=== PATIENT | male | born 1935 | race Caucasian/White ===

== ENCOUNTER 2025-02-25 14:27 | Inpatient (IN) | payer MEDICARE, OTHER, SELFPAY ==
[2025-02-25] VITALS (9 sets, daily range): BP systolic 110–169; BP diastolic 69–110; BMI 25.0; BMI 24.0
--- NOTE | 2025-02-25 10:20 | ED.GENMED ---
History of Present Illness
<Lisy Alvarez MD, Resident - Last Filed: 02/25/25 16:10>
General
Chief Complaint: Weakness
Source: patient and spouse
Time Seen by Provider: 02/25/25 10:19
History of Present Illness
History of Present Illness:
Patient is an 89-year-old male who presents to the emergency department with weakness, softer and mumbled speech, and staggering balance that has been occurring for 1 week without improvement. He has a history of atrial fibrillation,
hyperlipidemia, chronic kidney disease stage III, and hearing loss and he takes Eliquis 2.5mg, finasteride, lovastatin, and metoprolol 25 mg. Patient was in his normal state of health until Friday last week when his noticed that he was
leaning off to the right side while he was folding his clothes. Patient's brought these concerns to the patient but he opted to not present to the emergency department at that time. The next day on Friday he was walking with his and his
right leg 'caved in' and he needed help from his in order to maintain balance and finish the journey. He often plays bridge with a friend who also has noticed that there is been a change in the patient's behavior. Patient was scheduled to
see ENT next Friday for the balance issues. The patient and his reached out to his compo conveyor operator for his through the [facility] and they recommended that the patient present to the emergency department for further evaluation based
on the history provided over the phone. Patient has not had any shortness of breath, chest tightness, or chest pain. he is not having any nausea, vomiting, or diarrhea. Urinary and bowel habits remain unchanged. His oral intake is normal. He
does not have any sensation of palpitations.
Past History
<Lisy Alvarez MD, Resident - Last Filed: 02/25/25 16:10>
Past History
ED Past Medical History: Arrthythmia ( Atrial fibrillation), CAD, HTN and Hypercholesterolemia
Social History
Tobacco: Non-smoker
Alcohol: Occasional
Drug: None
Personal: Partner
Living: with family
Employment: Not employed
Review of Systems
<Lisy Alvarez MD, Resident - Last Filed: 02/25/25 16:10>
Review of Systems
Constitutional: Reports no symptoms
EENT: Reports no symptoms
Respiratory: Reports no symptoms
Cardiac: Reports no symptoms
ABD/GI: Reports no symptoms
: Reports no symptoms
Musculoskeletal: Reports other ( knee 'caved in' during walk recently)
Skin: Reports no symptoms
Neurological: Reports other ( unsteady gait, mumbled/slurred speech)
Endocrine: Reports no symptoms
Hematologic/Lymphatic: Reports no symptoms
Psychiatric: Reports no symptoms
Phy Exam
<Lisy Alvarez MD, Resident - Last Filed: 02/25/25 16:10>
General Physical Exam
General Presentation: well appearing and no apparent distress
General age: appears stated age
General Skin: warm and dry
General Habitus: normal and elderly
General Mental: alert
General Hydration: appears well hydrated
Cardiovascular Exam
Cardiovascular Exam: no edema, no gallop, no JVD, no murmur, normal peripheral pulses and irregularly irregular
Pulmonary Exam
Pulmonary Exam: lungs clear, no respiratory distress, no rales, chest non tender, no crackles, no rhonchi, no stridor, no wheezing and no cough
Neurological Exam
Neurological Exam: alert, oriented x3, normal reflexs, no sensory deficits, dysarthric and slurred speech
Cerebellar
Cerebellar Function: normal finger to nose
Musculoskeletal Exam
Musculoskeletal Exam: full ROM
Skin Exam
Skin Exam: normal color and warm/dry
Psychiatric Exam
Psychiatric Exam: normal mood/affect
Scores
<Lisy Alvarez MD, Resident - Last Filed: 02/25/25 16:10>
NIH Stroke Score
Level of Consciousness: 0 - Alert
LOC Questions: 0-Answers both correctly
LOC Commands: 0-Performs both correctly
Best Horizontal Gaze: 0-Normal
Visual Carter: 0=Normal, no visual loss
Facial Palsy: 0=Normal, symmetrical
Motor - Right Arm: 0=No drift 10 seconds
Motor - Left Arm: 0=No drift 10 seconds
Motor - Right Le-No drift 5 seconds
Motor - Left Le-No drift 5 seconds
Limb Ataxia: 0-Absent
Sensation: 0-Normal
Best Language: 0-No aphasia
Dysarthria: 1-Mild slurring
Extinction and Inattention: 0-No abnormality
NIH Total Score:: 1
<Mauricio Mosqueda, DO - Last Filed: 02/25/25 11:46>
NIH Stroke Score
NIH Total Score:: 1
Course
<Lisy Alvarez MD, Resident - Last Filed: 02/25/25 16:10>
Orders/Labs/Results
Orders:
Orders
02/25/25 10:24
Electrocardiogram (*1) Urgent
Reason for Study: Fatigue / Weakness
EKG- Treatment ONCE
02/25/25 10:51
Complete Blood Count/With Diff Urgent
Comprehensive Metabolic Panel Urgent
Folate Urgent
Comment: ADD ON
Magnesium Urgent
Comment: ADD ON
Phosphorus Urgent
Comment: ADD ON
TSH Reflex To Free T4 Urgent
Vitamin B12 Urgent
Comment: ADD ON
02/25/25 10:54
CT Head W/o Iv Contrast Urgent
Comment:
Reason For Exam: R weakness dysarthria past week
02/25/25 11:00
Troponin I Urgent
02/25/25 11:44
Urinalysis Reflex To Culture Urgent
Date Specimen was Collected: 02/25/25
Time Specimen was Collected: 11:22
Urine Microscopic Reflex Cult Urgent
02/25/25 13:42
Add On- LAB Urgent
Tests Added?: Folate, B12, Mag, phos
02/25/25 13:49
US Carotid [US Cerebrovascular] Urgent
Comment:
Reason For Exam: stroke symptoms; renal insuff
02/25/25 13:59
Admit/Transfer Patient As Directed
Co-Sign Provider:
Level of Care: Observation services
Assign to:: Telemetry
Physician / Group: [facility]
Diagnosis: cva
Reason for Telemetry: Arrhythmia
Date to Stop Telemetry: 02/28/25
Time to Stop Telemetry: 11:00
Code Status As Directed
Resuscitation Status: Do not resuscitate
Reached after discussion with pt or family/Healthcare POA: Yes
DNR Bracelet Application ONCE
PRN Pain Medication Management As Directed
May give lesser potent ordered pain med per pt: Yes
preference::
Protocol:: Medication orders for pain may be administered in a
manner that supports deferring to patient preference
when the pt is:
- Requesting an ordered lesser potent pain medication.
Least to most potent pain medications are defined
as: acetaminophen < NSAID < tramadol < opioids
(morphine, oxycodone, hydromorphone).
- Requesting a lesser dose of the same medication IF
ORDERED.
- Requesting a less intrusive route of administration
if both routes are prescribed by the provider (PO <
IV).
02/25/25 14:11
Pt Eval And Treat Routine
Treatment: RLE weakness
Activity Level: Out of Bed-Early Mobility
02/25/25 14:12
Speech Therapy Eval & Treat Routine
Treatment: dysarthria, concern for stroke
02/25/25 14:13
Ot Eval And Treat Routine
Treatment: ataxia, stroke workup
02/25/25 Dinner
Regular
02/25/25 16:02
Activity As Directed
Activity Level: As Tolerated
Pneumatic Compression Sleeves As Directed
Type: Knee high
Vital Signs As Directed
Frequency: Per unit guidelines
DX Deep Vein Thrombosis Video Routine
02/26/25 06:00
Complete Blood Count/With Diff IN AM
Comprehensive Metabolic Panel IN AM
02/28/25 11:00
DC Protocol for Telemetry ONCE
Abnormal Lab Results
02/25/25 02/25/25
10:51 11:44
RBC 4.67 L 10^6/uL
(4.70-6.10)
MCV 96.1 H fL
(80.0-94.0)
MCH 32.3 H pg
(27.0-31.0)
BUN 31 H mg/dl
(9-20)
Creatinine 1.7 H mg/dL
(0.7-1.3)
Urine Albumin (Reflex) 1+ A
(Neg - Trace)
02/25/25 10:51
02/25/25 10:51
Vital Signs
Initial and Last Documented VS:
Initial Vital Signs
Temp Pulse Resp BP Pulse Ox
97.6 F 64 20 128/76 98
02/25/25 10:12 02/25/25 10:12 02/25/25 10:12 02/25/25 10:12 02/25/25 10:12
Last Documented Vital Signs
Temp Pulse Resp BP Pulse Ox
97.6 F 85 15 150/95 99
02/25/25 10:12 02/25/25 15:45 02/25/25 15:45 02/25/25 15:31 02/25/25 14:00
<DO Misti Tanner Last Filed: 02/25/25 11:46>
Orders/Labs/Results
Orders:
Orders
02/25/25 10:24
Electrocardiogram (*1) Urgent
Reason for Study: Fatigue / Weakness
EKG- Treatment ONCE
02/25/25 10:51
Complete Blood Count/With Diff Urgent
Comprehensive Metabolic Panel Urgent
Folate Urgent
Comment: ADD ON
Magnesium Urgent
Comment: ADD ON
Phosphorus Urgent
Comment: ADD ON
TSH Reflex To Free T4 Urgent
Vitamin B12 Urgent
Comment: ADD ON
02/25/25 10:54
CT Head W/o Iv Contrast Urgent
Comment:
Reason For Exam: R weakness dysarthria past week
02/25/25 11:00
Troponin I Urgent
02/25/25 11:44
Urinalysis Reflex To Culture Urgent
Date Specimen was Collected: 02/25/25
Time Specimen was Collected: 11:22
Urine Microscopic Reflex Cult Urgent
02/25/25 13:42
Add On- LAB Urgent
Tests Added?: Folate, B12, Mag, phos
02/25/25 13:49
US Carotid [US Cerebrovascular] Urgent
Comment:
Reason For Exam: stroke symptoms; renal insuff
02/25/25 13:59
Admit/Transfer Patient As Directed
Co-Sign Provider:
Level of Care: Observation services
Assign to:: Telemetry
Physician / Group: [facility]
Diagnosis: cva
Reason for Telemetry: Arrhythmia
Date to Stop Telemetry: 02/28/25
Time to Stop Telemetry: 11:00
Code Status As Directed
Resuscitation Status: Do not resuscitate
Reached after discussion with pt or family/Healthcare POA: Yes
DNR Bracelet Application ONCE
PRN Pain Medication Management As Directed
May give lesser potent ordered pain med per pt: Yes
preference::
Protocol:: Medication orders for pain may be administered in a
manner that supports deferring to patient preference
when the pt is:
- Requesting an ordered lesser potent pain medication.
Least to most potent pain medications are defined
as: acetaminophen < NSAID < tramadol < opioids
(morphine, oxycodone, hydromorphone).
- Requesting a lesser dose of the same medication IF
ORDERED.
- Requesting a less intrusive route of administration
if both routes are prescribed by the provider (PO <
IV).
02/25/25 14:11
Pt Eval And Treat Routine
Treatment: RLE weakness
Activity Level: Out of Bed-Early Mobility
02/25/25 14:12
Speech Therapy Eval & Treat Routine
Treatment: dysarthria, concern for stroke
02/25/25 14:13
Ot Eval And Treat Routine
Treatment: ataxia, stroke workup
02/25/25 Dinner
Regular
02/25/25 16:02
Activity As Directed
Activity Level: As Tolerated
Pneumatic Compression Sleeves As Directed
Type: Knee high
Vital Signs As Directed
Frequency: Per unit guidelines
DX Deep Vein Thrombosis Video Routine
02/26/25 06:00
Complete Blood Count/With Diff IN AM
Comprehensive Metabolic Panel IN AM
02/28/25 11:00
DC Protocol for Telemetry ONCE
Abnormal Lab Results
02/25/25 02/25/25
10:51 11:44
RBC 4.67 L 10^6/uL
(4.70-6.10)
MCV 96.1 H fL
(80.0-94.0)
MCH 32.3 H pg
(27.0-31.0)
BUN 31 H mg/dl
(9-20)
Creatinine 1.7 H mg/dL
(0.7-1.3)
Urine Albumin (Reflex) 1+ A
(Neg - Trace)
02/25/25 10:51
02/25/25 10:51
Vital Signs
Initial and Last Documented VS:
Initial Vital Signs
Temp Pulse Resp BP Pulse Ox
97.6 F 64 20 128/76 98
02/25/25 10:12 02/25/25 10:12 02/25/25 10:12 02/25/25 10:12 02/25/25 10:12
Last Documented Vital Signs
Temp Pulse Resp BP Pulse Ox
97.6 F 85 15 150/95 99
02/25/25 10:12 02/25/25 15:45 02/25/25 15:45 02/25/25 15:31 02/25/25 14:00
<Lisy Alvarez MD, Resident - Last Filed: 02/25/25 16:10>
*Pulse Oximetry
SaO2: 98
Oxygen Mode of Delivery: Room air
Patient hypoxic: no
*Critical Care Note
Total Time (30-74mins, 75-104mins- exclusive of procedures): Not Applicable
<Lisy Alvarez MD, Resident - Last Filed: 02/25/25 16:10>
Update Note
Update Note:
Problem List:
Difficulty with ambulation
slurred/mumbling speech
atrial fibrillation
hyperlipidemia
hypertension
coronary artery disease
Plan:
CBC and CMP ordered
EKG
CT of the head without IV contrast
TSH with reflex to T4
Differential Diagnoses:
TIA/CVA
atrial fibrillation
orthostatic hypotension
metabolic encephalopathy
Radiology:
- CT of the head without IV contrast conducted on 02/25/2025:
No acute intracranial hemorrhage. No mass effect. Moderate chronic microvascular white matter ischemic disease.
Small focus of slightly more localized diminished attenuation superimposed on the anterior limb of left internal capsule; possibly related to asymmetric chronic ischemic change. However, the possibility of small subacute lacunar infarct cannot be
entirely excluded.
Age-appropriate atrophy.
EKG: EKG positive for atrial fibrillation, , nonspecific intraventricular conduction block, T wave abnormality, consider lateral ischemia
Labs:
CBC unremarkable
CMP with a BUN of 31, creatinine of 1.7, eGFR 38.3
troponin within normal limit
TSH within normal limit
Updates:
based on history, physical examination, and head CT there is concern for possible TIA/CVA that requires further investigation.
Bilateral carotid ultrasound ordered
presented case to neurology and hospitalist team for admit
ED Attending Note
<Lisy Alvarez MD, Resident - Last Filed: 02/25/25 16:10>
-
Portions of this chart may have been created with voice recognition software.� Occasional wrong word or��sound alike� substitutions may have occurred due to the inherent limitations of voice recognition software.
<Mauricio Mosqueda DO - Last Filed: 02/25/25 11:46>
ED Attending Note
Patient seen and examined by attending physician: Yes
I performed a history and physical exam of patient and discussed management with resident, I reviewed resident's note and agree with documented findings and plan of care.: Yes
ED Attending Note:
I evaluated the patient at bedside. The patient has some slurred speech ongoing for the past 6 days or so. His stroke scale is 1. thought maybe he was weaker on the right side as he was leaning to the right side at times however his
neurologic exam is unremarkable for any weakness other than the dysarthria which is mild. He has no aphasia. He has no field cuts on exam. He is in A-fib and EKG does show some T wave abnormality with no old to compare. Will also add troponin
but he never had any chest pain. Offered and considered keeping the patient in the hospital however the patient strongly prefers outpatient management.
Discharge Plan
Departure
Patient Disposition: Admit
Date of Disposition: 02/25/25
Time of Disposition: 14:01
Presentation/result/management discussed w/ accepting MD/DO: Hospitalist
Discharge Problem:
Acute CVA (cerebrovascular accident)
Interventions
Interventions:
*Risk Screen - Suicide Last Done: 02/25/25 10:12
*General Assessment Last Done: 02/25/25 10:12
*Neglect/Abuse Screening Last Done: 02/25/25 10:12
*ED- Fall Risk Assessment Last Done: 02/25/25 10:45
*Nursing Disposition Last Done: 02/25/25 14:36
ED- Cardiac Assessment Last Done: 02/25/25 10:45
ED- Neurological Assessment Last Done: 02/25/25 10:45
ED- Pulmonary Assessment Last Done: 02/25/25 10:45
[2025-02-25 11:09] LABS: Hematocrit 44.9 % (39.0-52.0); Hemoglobin 15.1 g/dL (13.0-18.0); Mean Corp Hgb Conc. 33.6 g/dL (33.0-37.0); Mean Corpuscular Volume 96.1 fL (80.0-94.0); Nucleated Red Blood Cells % 0 % (-); Platelet Count 148 10^3/uL (130-400); Red Cell Dist. Width 13.9 % (11.5-14.5)
[2025-02-25 11:51] LABS: Urine Character Clear (Clear)
[2025-02-25 11:55] LABS: ALT (SGPT) 31 U/L (0-50); AST (SGOT) 36 U/L (17-59); Albumin 4.0 g/dl (3.5-5.0); Alkaline Phosphatase 42 U/L (38-126); Blood Urea Nitrogen 31 mg/dl (9-20); Calcium 9.9 mg/dl (8.4-10.2); Carbon Dioxide 27 mmol/L (22-30); Chloride 105 mmol/L (98-107); Estimated Creatinine Clearance 30 ml/min; Glucose 93 mg/dl (70-99); Potassium 4.7 mmol/L (3.5-5.1); Sodium 138 mmol/L (135-145); Total Protein 6.8 g/dl (6.3-8.2); eGFR 38.30
[2025-02-25 11:59] LABS: Urine Red Blood Cell 0-2 /HPF (0-2); Urine Squamous Cell 0-2 /LPF (Few); Urine White Cell 0-2 /HPF (0-5)
[2025-02-25 12:19] LABS: Troponin I 0.028 ng/ml
--- NOTE | 2025-02-25 13:56 | CON.NEURO4 ---
Addendum entered and electronically signed by Frandy Mcqueen MD 02/25/25 14:48:
Studies reviewed.
I have personally examined the patient. I reviewed and agree with the GAMING ASSOCIATE's Note.
My addenda:
Awake, alert, interactive. No acute distress.
Speech intact.
Follows 2-step requests w/o difficulty. No tremor.
Extra-ocular movements grossly intact.
Facial movements full and symmetric. Hearing intact to normal conversational volume.
Normal UE movements bilaterally.
Neck: full ROM.
Chest: no dyspnea
Heart: no JVD
Ext: (-) Clubbing, (-) Cyanosis, (-) Edema
IMPRESSIONS/RECOMMENDATIONS:
Subacute onset of speech changes, right lower extremity weakness beginning approximately 6 days ago
Due to noncompliance, patient did not present to this [facility] emergency department until now. The most likely diagnosis is subacute ischemic stroke involving middle cerebral or posterior cerebral artery distribution
Continue patient's usual apixaban, no indication for antiplatelet agents
Follow cholesterol levels to determine if patient is experiencing LDL less than 70
Check for metabolic abnormalities producing symptoms
Check carotid ultrasound to discover if there is significant stenosis as the patient has renal insufficiency suggesting possible worsening if CT angiogram was performed
Agree with MRI of brain for completeness
Rehabilitation evaluations and treatment
D/W patient / family
All questions answered.
Will continue to follow pending results.
Original Note:
Documented by User: Ita Carrillo NP 02/25/25 14:36
Consultation - Neurology 4
-
CONSULTING PHYSICIAN: Frandy Mcqueen MD
REFERRING PHYSICIAN: Hospitalists/Dr. Antonio MD Resident
DICTATED BY: ENRIQUE Aly
DATE/TIME OF REQUEST: 02/25/25
DATE/TIME OF CONSULTATION: 02/25/25
Reason for Consultation: Ataxia, dysarthria
History of Present Illness:
This is an 89-year-old right-handed male who has presented to the hospital with report of RLE weakness and dysarthria starting 6 days ago. Patient and his spouse at bedside report that 6 days ago on 02/19/25 his RLE became weak and his speech
sounded dysarthric. He notes several months of feeling like his gait is slightly 'staggered' but he was ambulating without an assistive device and denies any falls. Six days ago, he started feeling like his RLE was going to give-out on him when he
walks on it and he was falling to the right side into [place] with ambulation. They ordered a cane on [employer] and he has been using that since 02/20/25. The patient does not note a change in his speech but his and friends told him that it sounds
slurred. CT head was obtained on arrival and is suggestive of a left internal capsule hypoattenuation. He denies any headache, dizziness, vision changes, swallowing difficulty, bowel/bladder difficulty, and numbness. He does note chronic back pain
and occasional mild headaches but none recently. He reports bilateral severe hearing loss starting years ago, he wears hearing aids which only help somewhat. He is taking apixaban for Afib and denies missing any doses.
Past Medical History: Afib (apixaban), HTN, CKD III, HLD, bilateral hearing loss, BPH
Surgical History: Appendectomy, rotator cuff surgery, sinus surgery, back surgery
Family History: Reviewed and noncontributory.
Social History: Former smoker. Occasional alcohol. Denies illicit drug use.
Allergies: No known allergies.
Home Medications: See below.
Review of Symptoms:
Patient denies any fever, headache, chest pain, shortness of breath, GI or symptoms.
�Per the HPI.�All systems are reviewed negative except above.
Physical Exam:
The patient is afebrile, abdomen is nondistended, breathing is unlabored, skin is warm and dry, no edema.
NIH Stroke Scale:
I performed the NIH stroke scale on the patient on 02/25/25 at 1400. The patient scored 1 points on the NIH stroke scale assessment, which were assigned as follows: See below.
Neurologic Examination:
The patient is awake, alert and oriented x 3. He is able to follow commands and answer questions appropriately. There is no aphasia or dysarthria. On cranial nerve assessment, pupils are 3 mm bilateral, round and reactive to light and
accommodation. Visual carter are full. Extraocular movements are intact. Facial sensations are intact and bilaterally symmetrical, there is no facial asymmetry. Hearing is severely reduced bilaterally to normal conversation volume. Tongue palate and
uvula are midline. Sternocleidomastoid strengths are full bilaterally. Motor strengths are 5/5 bilateral upper and lower extremities on medical research [place] scale. There is no drift or involuntary movement noted. Deep tendon reflexes are 2+
bilateral upper and lower extremities and Babinski is absent bilaterally. There was no extinction noted on double simultaneous stimulation. Coordination is intact by finger to nose bilaterally.
Lab Results: See below.
Neuro Imaging:
1. CT head 02/25/25: No acute intracranial hemorrhage. No mass effect. Moderate chronic microvascular white matter ischemic disease. Small focus of slightly more localized diminished attenuation superimposed on the anterior limb of left internal
capsule; possibly related to asymmetric chronic ischemic change. However, the possibility of small subacute lacunar infarct cannot be entirely excluded. Age-appropriate atrophy.
Differentials for the patient's presentation include:
1. Ataxia, RLE weakness, and dysarthria; etiology is likely a subacute ischemic infarct, possibly in the left internal capsule as suggested by CT head imaging.
Patient has the following risk factors for their symptoms: Age, HTN, HLD, Afib
IV Tenecteplase/IAT candidacy: He is not a candidate due to symptom onset 6 days ago.
Recommendations:
-MRI brain noncontrast pending.
-Carotid ultrasound pending.
-Continue home apixaban.
-Goal normotension.
-LDL goal <70. Lipid panel pending.
-Goal normoglycemia, hbA1c is pending.
-NIHSS and neurological checks per unit guidelines.
-Provide patient with a stroke education packet.
-PT/OT/ST evaluations.
Discussed patient care with: Dr. Mcqueen, the patient, patient's spouse
Vital Signs and Labs
-
Vital Signs and Labs:
Vital Signs
Temp Pulse Resp BP Pulse Ox
97.6 F 82 23 110/69 98
02/25/25 10:12 02/25/25 14:15 02/25/25 14:15 02/25/25 11:21 02/25/25 13:45
Lab Results
02/25/25 10:51
02/25/25 10:51
Sodium 138 mmol/L (135-145) 02/25/25 10:51
Potassium 4.7 mmol/L (3.5-5.1) 02/25/25 10:51
BUN 31 mg/dl (9-20) H 02/25/25 10:51
Glucose 93 mg/dl (70-99) 02/25/25 10:51
Calcium 9.9 mg/dl (8.4-10.2) 02/25/25 10:51
Medications
-
Home Medications
�Medication �Instructions �Recorded
carisoprodol 350 mg tablet (Soma) 350 mg PO Q8HPRN PRN muscle spasms 10/08/09
#30 tabs
diclofenac sodium 50 mg 50 mg PO Q8HPRN PRN back pain #30 10/08/09
tablet,delayed release tabs
NIH Stroke Score
Subsequent NIH Scale
Date of Subsequent NIH Scale: 02/25/25
Time of Subsequent NIH Scale: 14:00
NIH Stroke Score
Level of Consciousness: 0 - Alert
LOC Questions: 0-Answers both correctly
LOC Commands: 0-Performs both correctly
Best Horizontal Gaze: 0-Normal
Visual Carter: 0=Normal, no visual loss
Facial Palsy: 0=Normal, symmetrical
Motor - Right Arm: 0=No drift 10 seconds
Motor - Left Arm: 0=No drift 10 seconds
Motor - Right Le-No drift 5 seconds
Motor - Left Le-No drift 5 seconds
Limb Ataxia: 0-Absent
Sensation: 0-Normal
Best Language: 0-No aphasia
Dysarthria: 1-Mild slurring
Extinction and Inattention: 0-No abnormality
NIH Total Score:: 1
Modified [place] (mRS) Score
Modified [place] Scale (mRS): Slight disability. Able to look after own affairs.
Score: 2
Alteplase Contraindication
Inclusion and Exclusion criteria reviewed: Yes
Reasons for NON-Tx with Thrombolytics ABSOLUTE Exclusions: Greater than 4.5 hrs from onset of sxs

Documented by User: Frandy Mcqueen MD 02/25/25 14:44
NIH Stroke Score
NIH Stroke Score
NIH Total Score:: 1
Modified [place] (mRS) Score
Score: 2
--- NOTE | 2025-02-25 14:01 | HPS.HSE ---
Family Physician
-
Family Physician: Jose Antonio Villagomez
Chief Complaint
-
slurred speech
History of Present Illness
89-year-old male past medical history of atrial fibrillation, CKD 3B, gout, hyperlipidemia, BPH, hearing loss, presenting with slurred speech and staggered balance occurring for 1 week without improvement. He was in his normal state of health until
last Friday 6 days ago when his noticed that he was leaning off to the right side and he was folding his clothes. He did not want to come to the emergency room at that time. The next day his right leg caved in and he needed help from his
to maintain balance. He plays bridge with a friend who noticed that there has been change in patient's behavior.
He was supposed to see ENT next week for balance issues. Patient notified his station cook and they recommended he come to the emergency room.
He does not have any chest pain or shortness of breath. Denies nausea vomiting or diarrhea. Denies any new headache, numbness or tingling, blurry vision. No facial droop.
Drinks alcohol occasionally. Denies smoking.
His mother had high blood pressure. His brother had some sort of cancer.
Medical History
Past Medical History
Past Medical History: Reports Other (atrial fibrillation, CKD 3B, gout, hyperlipidemia, BPH, hearing loss)
Past Surgical History: Reports Other (Shoulder surgery, back surgery, carpal tunnel surgery, sinus surgery)
Social History
Tobacco: Non-smoker
Alcohol: Occasional
Drug: None
Family History
Family History: Not pertinent
Allergies / Home Medications
Allergies reflects when Allergies were last updated in [employer].
Home Medications with original date entered in [employer]
Allergy/Medication List:
Allergies
Allergy/AdvReac Type Severity Reaction Status Date / Time
No Known Allergies Allergy Verified 02/25/25 10:17
Home Medications
carisoprodol 350 mg tablet (Soma) 350 mg PO Q8HPRN PRN muscle spasms #30 tabs 10/08/09
diclofenac sodium 50 mg tablet,delayed release 50 mg PO Q8HPRN PRN back pain #30 tabs 10/08/09
Review of Systems
-
History Source: Patient
A 12 point ROS was completed and negative except as noted: Yes
Constitutional: Reports No Symptoms
EENT: Reports No Symptoms
Respiratory: Reports No Symptoms
Cardiac: Reports No Symptoms
Abdomen/GI: Reports No Symptoms
: Reports No Symptoms
Musculoskeletal: Reports No Symptoms
Skin: Reports No Symptoms
Neurological: Reports See HPI
Endocrine: Reports No Symptoms
Hematologic/Lymphatic: Reports No Symptoms
Psych: Reports No Symptoms
Physical Exam
Vital Signs
Vital Signs
Temp Pulse Resp BP Pulse Ox
97.6 F 73 20 110/69 98
02/25/25 10:12 02/25/25 13:45 02/25/25 13:45 02/25/25 11:21 02/25/25 13:45
Physical Exam
General: Well Developed, Well Nourished and No Apparent Distress
HEENT: NormoCephalic, Moist mucous membranes and Atraumatic
Respiratory: Clear
Cardiac: S1/S2 and Regular Rhythm; No Murmur or Rub
GI: Soft, Non Tender, Non Distended and Normal Bowel Sounds; No Organomegaly
Rectal: Deferred by Provider
Musculoskeletal: No Clubbing, No Cyanosis and No Edema
Skin: No Rash
Neuro: Nonfocal/grossly intact
Laboratory Results
-
02/25/25 10:51
02/25/25 10:51
Laboratory Results
Total Bilirubin 1.3 mg/dl (0.2-1.3) 02/25/25 10:51
AST 36 U/L (17-59) 02/25/25 10:51
ALT 31 U/L (0-50) 02/25/25 10:51
Alkaline Phosphatase 42 U/L (38-126) 02/25/25 10:51
Troponin I 0.028 ng/ml 02/25/25 11:00
Data Reviewed
-
Lab Data: Labs Reviewed by me
Old Records: Reviewed
Impression/Plan
-
IMPRESSION:
PLAN:
# Likely acute CVA
- NIH of 1 with slurred speech and symptoms for 6 days out of the window for any intervention
- CT head shows no acute intracranial hemorrhage, small focus of slightly more localized diminished attenuation superimposed on the anterior limb of the left internal capsule possibly related to asymmetric chronic ischemic change, possibility of
small subacute lacunar infarct cannot be entirely excluded
- Cannot do CTA due to renal function
-Carotid ultrasound pending
- Check MRI brain
-Continue Eliquis
- Neurology consulted
Chronic atrial fibrillation
- EKG shows atrial fibrillation
- Continue Eliquis
- Continue metoprolol
CKD 3B
- Creatinine 1.7, no recent for comparison
Gout
Hyperlipidemia
- Continue lovastatin
BPH
- Continue finasteride
Hearing loss
DNR/DNI
DVT prophylaxis�Eliquis
Regular diet
--- NOTE | 2025-02-25 14:22 | CM ---
Addendum entered by Digna Monreal 02/25/25 14:28:
Does have hx [facility] after shoulder surgery
Original Note:
CM reviewed chart and met with pt and his bedside in ED. Lives with , 1 story home, [address].
Independent in ADLs, personal care and ambulation at baseline, has been using cane over past week. Still drives.
Confirms prescription coverage.
ASTORGA reviewed and signed by his .
No hx VN or SNF.
PCP: Jose Antonio Villagomez
Pharmacy: [facility]
CM will continue to follow for any discharge planning needs.
[2025-02-25 14:35] LABS: Magnesium 2.2 mg/dl (1.6-2.3)
--- NOTE | 2025-02-25 15:25 | PTOTSP ---
Speech Language Pathology
Pt seen for speech/language evaluation. Very mild dysarthria noted with slight imprecision. Pt not noting dysarthria, but endorsing. Language evaluated via the Quick Aphasia Battery (QAB), form 1. Pt scored WNL on all subtests with an
overall score of 9.90 (WNL).
Pt also seen for clinical bedside swallow evaluation. P.O. trials of puree, regular solids, and thin liquids provided. Adequate mastication, bolus formation, and A-P transit noted with no oral residue. Dry cough x1 following regular solids.
Recommend:
(1) Regular solids/thin liquids
(2) General aspiration precautions
(3) Meds as tolerated
(4) OCCUPATIONAL MEDICINE PHYSICIAN to continue to follow for dysarthria tx and to ensure diet tolerance
[2025-02-25] MEDS: LIPITOR 10 MG PO (17:10)
[2025-02-25 19:18] LABS: Folate > 20.0 ng/ml (2.76-20); Vitamin B12 708 pg/ml (239-931)
[2025-02-25] MEDS: ELIQUIS 2.5 MG PO (20:10)
[2025-02-25] MEDS: TYLENOL 500 MG PO (21:28)
[2025-02-25] MEDS: BENADRYL 25 MG PO (21:28)
[2025-02-25] MEDS: TOPROL XL 25 MG PO (21:31)
[2025-02-26] VITALS (7 sets, daily range): BP systolic 111–161; BP diastolic 75–96; PULSE 72; O2SAT 99; BMI 24.0
--- NOTE | 2025-02-26 02:41 | PTCARENOTE ---
Pts heart rate dropped into the 30s with a 2.97 second pause while he was sleeping. He was asymptomatic and aroused easily. Pt denies any dizziness, lightheadedness or chest pain. Tele strip placed in chart. SUPERINTENDENT COMMUNICATIONS made aware and ordered metoprolol to
be held tonight and a mag draw for this morning. SUPERINTENDENT COMMUNICATIONS also placed him on 2L of O2. Will continue to monitor closely.
--- NOTE | 2025-02-26 03:00 | W.PN.UPDATE ---
Update Note
Progress Note Update
-Hr dropping to 36-55 while he is sleeping, hr back to 70s once he wakes up. BP 111/75. Patient also noted with pauses up to 2.97 sec.
-asymptomatic. Patient with no PMH of sleep apnea.
-Patient received metoprolol 25mg at hs, will hold metoprolol for now.
-will place the patient on 2 L of O2 during the night and monitor.
--- NOTE | 2025-02-26 03:41 | PTCARENOTE ---
Pt consistently noted to have heart rate drop between 36 to 55 with a 2.97 second pause while he was sleeping with onset time 0106. He was asymptomatic and aroused easily. Pt denies any dizziness, lightheadedness or chest pain. At this time, blood
pressure was 111/75 and heart rate 78. Tele strip placed in chart. PROJECT GEOLOGIST made aware and ordered metoprolol to be held for 02/26 at 2200 and a mag with am lab draw 02/26. PROJECT GEOLOGIST also ordered him to be placed on 2L of O2. Will continue to monitor closely.
[2025-02-26] MEDS: ELIQUIS 2.5 MG PO (07:47)
[2025-02-26] MEDS: PROSCAR 5 MG PO (07:47)
--- NOTE | 2025-02-26 09:48 | W.PN.HOSP.TC ---
Addendum entered and electronically signed by Pamela Botello MD 02/26/25 15:50:
Addendum
MRI reviewed with pt and . Pt is requesting to go home
d/w Neurologist, ok to go home with current medications.
Seen by cardiology, adjusted medications
Advise pt to use walker at home, and f/w neurology in OP, f/w his outpatient scheduler to repeat echo and with his PCP.
End
Total discharge time spent to see the patient, examine the patient, review data and lab results, discuss discharge/treatment plan with patient, , consultants, telephonic case manager, nursing staff around 67 minutes
Original Note:
Today's Communication/Plan
-
.
Assessment / Plan
Assessment / Plan
Physical Exam
General: Well Developed, Well Nourished and No Apparent Distress
HEENT: NormoCephalic, Moist mucous membranes and Atraumatic
Respiratory: Clear
Cardiac: S1/S2 and Regular Rhythm; No Murmur or Rub
GI: Soft, Non Tender, Non Distended and Normal Bowel Sounds; No Organomegaly
Rectal: Deferred by Provider
Musculoskeletal: No Clubbing, No Cyanosis and No Edema
Skin: No Rash
Neuro: Nonfocal/grossly intact
Psych: calm
A/P:
# Likely subacute CVA
- NIH of 1 with slurred speech and symptoms for 6 days out of the window for any intervention
- CT head shows no acute intracranial hemorrhage, small focus of slightly more localized diminished attenuation superimposed on the anterior limb of the left internal capsule possibly related to asymmetric chronic ischemic change, possibility of
small subacute lacunar infarct cannot be entirely excluded
- Cannot do CTA due to renal function
-Carotid ultrasound pending
- Check MRI brain. Patient requested medicine to calm him down during MRI, agreed to Ativan
-Continue Eliquis
- Neurology consulted
Chronic atrial fibrillation
Episode of bradycardia/ Pause
Will consult cardiology, BB is held
- EKG shows atrial fibrillation
- Continue Eliquis
- Continue metoprolol
CKD 3B
- Creatinine 1.7,
Avoid nephrotoxic
No Hematuria, no flank pain
Gout
Hyperlipidemia
- Continue lovastatin
BPH
- Continue finasteride
Hearing loss
DNR/DNI
DVT prophylaxis�Eliquis
Regular diet
Total time spent to see the patient, examine the patient, review data and lab results, discuss treatment plan with patient, nursing staff around 55 minutes
Anticipated Discharge: Within 24 hours
Subjective/Interval History
-
Date of Service: February 26, 2025
He feels normal
He asked for anxiety medicine for MRI/ Nighttime to calm him down
No chest pain or sob
He feels speech is normal
Objective Data
-
Labs:
Laboratory Results
02/26/25
09:25
WBC Pending
Hgb Pending
Hct Pending
Plt Count Pending
Sodium Pending
Potassium Pending
Chloride Pending
Carbon Dioxide Pending
BUN Pending
Creatinine Pending
Glucose Pending
Calcium Pending
Total Bilirubin Pending
AST Pending
ALT Pending
Alkaline Phosphatase Pending
Vital Signs:
Vital Signs
Temp Pulse Resp BP Pulse Ox
97.8 F 66 18 125/78 98
02/26/25 07:53 02/26/25 07:53 02/26/25 07:53 02/26/25 07:53 02/26/25 07:53
[2025-02-26 09:49] LABS: Hematocrit 46.3 % (39.0-52.0); Hemoglobin 15.3 g/dL (13.0-18.0); Mean Corp Hgb Conc. 33.0 g/dL (33.0-37.0); Mean Corpuscular Volume 94.5 fL (80.0-94.0); Nucleated Red Blood Cells % 0 % (-); Platelet Count 144 10^3/uL (130-400); Red Cell Dist. Width 13.9 % (11.5-14.5)
[2025-02-26 10:12] LABS: ALT (SGPT) 31 U/L (0-50); AST (SGOT) 33 U/L (17-59); Albumin 4.1 g/dl (3.5-5.0); Alkaline Phosphatase 42 U/L (38-126); Blood Urea Nitrogen 28 mg/dl (9-20); Calcium 9.4 mg/dl (8.4-10.2); Carbon Dioxide 26 mmol/L (22-30); Chloride 105 mmol/L (98-107); Estimated Creatinine Clearance 30 ml/min; Glucose 146 mg/dl (70-99); Magnesium 2.1 mg/dl (1.6-2.3); Potassium 4.4 mmol/L (3.5-5.1); Sodium 139 mmol/L (135-145); Total Protein 6.7 g/dl (6.3-8.2); eGFR 38.30
[2025-02-26] MEDS: VITAMIN D3 (cholecalciferol) 25 MCG PO (11:35)
--- NOTE | 2025-02-26 13:01 | CON.CAR ---
Addendum entered and electronically signed by Freedom Oliva DO 02/26/25 14:31:
I saw and examined the patient.
The Grounds Crew Supervisor's note was reviewed and I agree with the note.
Comment:
Plan:
89-year-old male with past medical history of permanent atrial fibrillation, chronic kidney disease stage III, hyperlipidemia, BPH, gout who presented to [facility] on 02/25/2025 with 6-day history of right lower extremity weakness and dysarthria. CT
head on arrival concerning for subacute ischemic stroke involving middle cerebral or posterior cerebral artery distribution. Cardiology consulted for some bradycardia overnight.
Plan:
His bradycardia was mild with no significant pauses or heart block. Given atrial fibrillation, some bradycardia overnight would not be unexpected.
Will transition to metoprolol in the a.m., Toprol XL 25 mg daily.
If he is still here can check echo February 28
As per neuro, he was continued on his usual apixaban which he takes for his history of permanent atrial fibrillation.
Continue neuro work up:
Carotid ultrasound subsequently performed showed less than 50% bilateral internal carotid artery stenosis.
MRI of the brain pending.
He remains stable from a cardiac standpoint heart rate and blood pressure are well controlled.
Outpatient follow-up with his fruit culler at [facility], Dr. Lopez
Discussed with nursing and with at bedside.
Original Note:
Consultation
Consultation Request
Date/Time Consultation Requested: 02/26/2025
Date/Time Consultation Performed: 02/26/2025
Requesting Provider: 02/26/2025 1000
Performing Provider: Nena NUNEZ , for Dr. Oliva
Reason for Consultation: bradycardia
Medical History
-
Chief Complaint: Bradycardia
History of Present Illness:
89-year-old male with past medical history of permanent atrial fibrillation, chronic kidney disease stage III, hyperlipidemia, BPH, gout who presented to [facility] on 02/25/2025 with 6-day history of right lower extremity weakness and dysarthria. CT
head on arrival concerning for subacute ischemic stroke involving middle cerebral or posterior cerebral artery distribution.
He was continued on his usual apixaban which he takes for his history of permanent atrial fibrillation. Carotid ultrasound subsequently performed showed less than 50% bilateral internal carotid artery stenosis. MRI of the brain pending.
Cardiology consulted today due to concern of bradycardia overnight with heart rate dropped to 36 bpm while asleep. Patient is maintained on Toprol 25 mg nightly for his history of permanent atrial fibrillation.
He denies dizziness, lightheadedness, palpitations, shortness of breath, chest pain.
He is followed by Dr. Lopez at [facility] for his afib. Patient tells me he has had A-fib for a couple years.
Patient denies history of CAD, NM. Reports he has had echoes but not sure when last one was.
Past medical history:
Permanent atrial fibrillation
Chronic kidney disease, followed by Dr. Becerra, baseline creatinine 1.6-1.8
Gout
Hyperlipidemia
Hearing loss
CVA
Past Medical History
Past Medical History: Other (As above)
Past Surgical History: Other (Shoulder surgery, back surgery, carpal tunnel surgery, sinus surgery)
Social History
Tobacco: Non-Smoker
Alcohol: Occasional
Drug: None
Personal:
Living: With Family
Family History
Family History: Other (Mother age 43 with hypertension, father 72 with heart disease)
Allergies / Home Medications
Allergy/AdvReac Type Severity Reaction Status Date / Time
No Known Allergies Allergy Verified 02/25/25 10:17
�Medication �Instructions �Recorded �Confirmed �Type
apixaban 2.5 mg tablet (Eliquis) 2.5 mg PO BID Blood Clot 02/25/25 02/25/25 History
Prevention/Tx
cholecalciferol (vitamin D3) 25 25 mcg PO DAILY@1200 Supplement 02/25/25 02/25/25 History
mcg (1,000 unit) tablet (Vitamin
D3)
diphenhydramine 25 2 tab PO HS Sleep 02/25/25 02/25/25 History
mg-acetaminophen 500 mg tablet
(Acetaminophen PM)
finasteride 5 mg tablet 5 mg PO DAILY Urinary Issue 02/25/25 02/25/25 History
lovastatin 20 mg tablet 20 mg PO QPM High Cholesterol 02/25/25 02/25/25 History
metoprolol succinate 25 mg 25 mg PO HS Blood Pressure 02/25/25 02/25/25 History
tablet,extended release 24 hr
(Toprol XL)
omega 5-sot-zud-fish oil 1,000 mg 1 cap PO DAILY Supplement 02/25/25 02/25/25 History
(120 mg-180 mg) capsule (Fish Oil)
vitamins A,C,T-tqxs-rvcpta 2,148 1 tab PO BID Supplement 02/25/25 02/25/25 History
mcg-113 mg-45 mg-17.4 mg tablet
(PreserVision AREDS)
Review of Systems
-
History Source: Patient
All other systems: Negative unless noted
Physical Exam
Vital Signs
Temp Pulse Resp BP Pulse Ox
97.6 F 87 18 122/78 98
02/26/25 11:26 02/26/25 11:26 02/26/25 11:26 02/26/25 11:26 02/26/25 11:26
Lab Results
02/26/25 09:25
02/26/25 09:25
Troponin I 0.028 ng/ml 02/25/25 11:00
GEN: No distress, awake, Ox3
HEENT: supple, anicteric, mmm
LUNGS: CTA, no wheezes/rales
CV: Irregular irregularno murmur
ABD: soft, BS+, NT/ND
EXT: No edema
NEURO: Gross non-focal
SKIN: No rash
Impression / Plan
-
PCP: Dr. Villagomez
Primary fruit culler: Dr Lopez ([facility])
Impression:
Bradycardia during sleep
Permanent atrial fibrillation
CVA, Subacute
Chronic kidney disease stage IIIb
Hyperlipidemia
BPH
Hearing loss
Previous cardiovascular testing: Unknown
Plan:
- Longstanding history of permanent atrial fibrillation managed with Toprol 25 mg daily and Eliquis.
- Telemetry personally reviewed: Atrial fibrillation with drop in heart rate to 36 bpm-40 bpm, no significant pauses. Occurs during sleep. Heart rates during the day vary between 60s to 80s.
-Patient denies symptoms of lightheadedness, dizziness, syncope
- Would change timing of metoprolol to morning dosing, starting tomorrow, I ordered
- Could consider outpatient sleep study to evaluate for obstructive sleep apnea as cause of bradycardia
- Continue usual outpatient Eliquis
- Check echo, I ordered for Friday if he is still here
Data Reviewed
-
EKG: Tracing Personally Visualized and interpreted
Labs: Labs Reviewed by me
--- NOTE | 2025-02-26 15:09 | CM ---
CM reviewed chart, patient seen with , plan for d/c today.
PT/OT rec HH- provided with options for HH agency, agreeable to referral to [facility], referral placed in [facility].
RW provided by therapy.
to transport home.
CM will continue to follow for all discharge planning needs.
Plan; home with , referral to [facility] VN
--- NOTE | 2025-02-26 15:50 | W.DCSUMMARY ---
Discharge Summary
Discharge Data
Date of Admission: 02/25/25
Date of Discharge: 02/26/25
-
Pending Results: No
Hospital Course
89-year-old male past medical history of atrial fibrillation, CKD 3B, gout, hyperlipidemia, BPH, hearing loss, presenting with slurred speech and staggered balance occurring for 1 week without improvement. He was in his normal state of health when
his noticed that he was leaning off to the right side. Patient started feeling like his right lower extremity was going to give out on him and he ordered a cane on [employer]. Patient did not feel he had change in his speech although family
members noticed it. Scan of the head was suggestive of left internal capsule hypoattenuation. Patient denied headache, dizziness, vision changes or swallowing difficulty. He reported compliance to his medication including Eliquis.Patient was
evaluated by neurologist, he underwent MRI of the brain that showed acute left thalamic/left internal capsule stroke with moderate atrophic changes. Carotid ultrasound did not show significant disease. No metabolic abnormalities. Neurologist
recommended to continue Eliquis and to follow in the office as outpatient. Patient reported history of gait dysfunction and he was scheduled to see ENT doctor on Friday for hearing loss and imbalance problems. Patient reported history of back
procedure/back pain. His gait dysfunction could be multiple factor including spinal stenosis. Folate and vitamin B12 were normal. TSH was normal. Troponin was negative. He was advised to follow-up with his primary care doctor. Patient was
noticed to have bradycardia during sleep. He was evaluated by orthopedic shoe fitter recommended to change metoprolol to daytime dose and to follow-up with his a primary orthopedic shoe fitter. Patient requested to be discharged did not want to miss his ENT doctor
appointment on Friday. Patient wanted to follow with his a primary care doctor regarding lipid panel and management of statin therapy. He was evaluated by physical therapy and speech therapy with recommendation to do home physical therapy. He was
given a walker to use at home. Patient remained hemodynamic stable. Discharge instructions were discussed with patient and his . Patient was discharged home in a stable condition.
Discharge Plan
-
Patient Disposition: Home with Home Care
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
You are seen by neurologist. Recommendation to continue with Eliquis, follow-up with neurology in 1 month.
Diet: As tolerated
Referrals:
Jose Antonio Villagomez DO [Family Provider, Family Practice]
Frandy Mcqueen MD [Active, Neurology] - in one month
Prescriptions:
Continued
lovastatin 20 mg Tablet
20 mg PO QPM
diphenhydramine-acetaminophen [Acetaminophen PM] 25-500 mg Tablet
2 tab PO HS
finasteride 5 mg Tablet
5 mg PO DAILY
cholecalciferol (vitamin D3) [Vitamin D3] 25 mcg (1,000 unit) Tablet
25 mcg PO DAILY@1200
omega 0-xcp-rng-fish oil [Fish Oil] 1,000 (120-180) mg Capsule
1 cap PO DAILY
PreserVision AREDS 2,148 mcg-113 mg-45 mg-17.4mg Tablet
1 tab PO BID
Eliquis 2.5 mg Tablet
2.5 mg PO BID
Changed
metoprolol succinate [Toprol XL] 25 mg Tablet Extended Release 24 Hr
25 mg PO DAILY Qty: 0 0RF
Discharge Orders:
Discharge Patient (As Directed); Ordered 02/26/25
Ordered By: Pamela Botello
Discharge Date and Time
Print Language: SWEDISH
== END 2025-02-26 16:10 | disposition home health service (06) | DRG 65 ==
LOC: 4 EAST ACU 14:27
PROVIDERS: ADMITTING PHYSICIAN Hospitalist; ATTENDING PHYSICIAN Internal Medicine; CONSULT PHYSICIAN Psychiatry & Neurology Neurology; EMERGENCY PHYSICIAN Emergency Medicine; FAMILY PHYSICIAN Family Medicine; OTHER PHYSICIAN Nuclear Medicine Nuclear Cardiology
DX: I63.81 Other cerebral infarction due to occlusion or stenosis of small artery (principal); I48.21 Permanent atrial fibrillation; N18.32 Chronic kidney disease, stage 3b; I12.9 Hypertensive chronic kidney disease with stage 1 through stage 4 chronic kidney disease, or unspecified chronic kidney disease; N40.0 Benign prostatic hyperplasia without lower urinary tract symptoms; E78.00 Pure hypercholesterolemia, unspecified; H91.93 Unspecified hearing loss, bilateral; Z66 Do not resuscitate; I25.10 Atherosclerotic heart disease of native coronary artery without angina pectoris; I65.23 Occlusion and stenosis of bilateral carotid arteries; Z79.01 Long term (current) use of anticoagulants; Z79.899 Other long term (current) drug therapy; Z82.49 Family history of ischemic heart disease and other diseases of the circulatory system; Z87.891 Personal history of nicotine dependence; Z97.4 Presence of external hearing-aid; G89.29 Other chronic pain
CPT/HCPCS: 70450; 70551; 80053; 81003; 81015; 82607; 82746; 83735; 84100; 84443; 84484; 85025; 92523; 92610; 93005; 93880; 97163; 97167; 99285